=== PATIENT | female | born 1980 | race Hispanic/Latino ===

== ENCOUNTER 2016-11-18 20:06 | Emergency (ER) | payer OTHER ==
[~2016-11-18] VITALS: Ht 157.5 cm; Wt 77.3 kg
[2016-11-18] MEDS ORDERED: ORTHTAB14 PO (20:27)
[2016-11-18] MEDS ORDERED: BIMA01SOL IO (20:27)
[2016-11-18] MEDS ORDERED: IBUP-1114 PO (20:27)
[2016-11-18] MEDS ORDERED: TYLE325T5 PO (20:27)
[2016-11-18] MEDS ORDERED: METOCLOPRAMIDE INJ 10MG/2ML VIAL (J2765) IV ONE (21:30)
[2016-11-18] MEDS ORDERED: NS 1,000 ML IV ONE (21:30)
[2016-11-18] MEDS ORDERED: diphenhydrAMINE INJ 50MG/ML VIAL (J1200) IV ONE (21:30)
[2016-11-18] MEDS ORDERED: KETOROLAC 30 MG/ML VIAL (J1885) IV ONE (21:30)
[2016-11-18 23:10] VITALS: BP 122/50
== END 2016-11-18 23:10 | disposition home or self-care (01) ==
LOC: M ED 20:06
DX: R51 Headache (principal); Z79.3 Long term (current) use of hormonal contraceptives
CPT/HCPCS: 96361; 96374; 96375; 99283; J1200; J1885; J2765